=== PATIENT | male | born 1970 | race Caucasian/White ===

== ENCOUNTER → 2016-08-03 | Outpatient (CLI) | payer OTHER | LOC: MRI 07-26 09:00 → EMI 07-27 09:30 | DX: M54.5 Low back pain (principal); Z95.810 Presence of automatic (implantable) cardiac defibrillator; M51.36 Other intervertebral disc degeneration, lumbar region; M46.96 Unspecified inflammatory spondylopathy, lumbar region; M47.816 Spondylosis without myelopathy or radiculopathy, lumbar region; M47.817 Spondylosis without myelopathy or radiculopathy, lumbosacral region; M46.97 Unspecified inflammatory spondylopathy, lumbosacral region; M48.07 Spinal stenosis, lumbosacral region | CPT/HCPCS: 72148 ==

== ENCOUNTER → 2020-08-03 | Outpatient (CLI) | payer OTHER ==
[~2020-08-03] MED LIST: AUGMENTIN 875-1 EACH PO; CELEXA20 MG PO; CYCLOBENZAPRINE5 MG PO; FOLIC ACID1 MG PO; IBUPROFEN600 MG PO; MUCINEX600 MG PO; NAPROSYN500 MG PO; SULFAMETHOXAZO1 EACH PO; THIAMINE HCL100 MG PO; TORADOL 10 MG T10 MG PO; VICODIN HP 10-1 EACH PO; ZOFRAN4 MG PO
[2020-08-03 14:03] LABS: HEMOGLOBIN 15.3 gm/dl (14.0-17.5); RED BLOOD COUNT 4.98 M/UL (4.20-5.50); WHITE BLOOD COUNT 6.9 K/UL (4.5-11.0)
[2020-08-03 14:23] LABS: BUN/CREATININE RATIO 29 (0-10)
[2020-08-04 10:14] LABS: HBSAG SCREEN Negative (Negative); HEP A AB, IGM Negative (Negative); HEP B CORE AB, IGM Negative (Negative); HEP C VIRUS AB >11.0 (0.0-0.9)
== END ==
LOC: LAB 12:52
PROVIDERS: Nurse Practitioner Family
DX: Z00.00 Encounter for general adult medical examination without abnormal findings (principal); E78.5 Hyperlipidemia, unspecified; R53.83 Other fatigue; M25.50 Pain in unspecified joint; I10 Essential (primary) hypertension
CPT/HCPCS: 36415; 80053; 80061; 80074; 82150; 83690; 84443; 84550; 85027; 85652; 86038

== ENCOUNTER 2020-10-31 09:20 | Emergency (ER) | payer OTHER ==
[~2020-10-31 09:20] MED LIST changes: -CYCLOBENZAPRINE5 MG PO
[2020-10-31] MEDS ORDERED: NAPROSYN500 MG PO (14:43)
[2020-10-31] MEDS ORDERED: CYCLOBENZAPRINE5 MG PO (14:43)
== END 2020-10-31 15:06 | disposition home or self-care (01) ==
LOC: ER1 09:20
DX: G89.29 Other chronic pain (principal); M54.5 Low back pain; M51.36 Other intervertebral disc degeneration, lumbar region; F17.200 Nicotine dependence, unspecified, uncomplicated; Z79.899 Other long term (current) drug therapy
CPT/HCPCS: 96372; 99283; J1885

== ENCOUNTER 2021-01-18 12:41 | Emergency (ER) | payer OTHER ==
[~2021-01-18 12:41] MED LIST changes: +CYCLOBENZAPRINE5 MG PO
[2021-01-18 13:49] LABS: HEMOGLOBIN 16.8 gm/dl (14.0-17.5); RED BLOOD COUNT 5.26 M/UL (4.20-5.50); WHITE BLOOD COUNT 10.3 K/UL (4.5-11.0)
[2021-01-18 14:12] LABS: BUN/CREATININE RATIO 14 (0-10)
[2021-01-18] MEDS ORDERED: PHENERGAN 25 MG25 M1 PO (16:01)
[2021-01-18] MEDS ORDERED: BLUE-EMU LIDOC1 EACH TP (16:01)
[2021-01-18] MEDS ORDERED: ROBAXIN 750 MG750 MG GT (16:01)
== END 2021-01-18 16:14 | disposition home or self-care (01) ==
LOC: ER1 12:41
PROVIDERS: Physician Assistant
DX: U07.1 COVID-19 (principal); M54.5 Low back pain; G89.29 Other chronic pain; F17.200 Nicotine dependence, unspecified, uncomplicated
CPT/HCPCS: 71045; 72100; 80053; 85025; 96372; 99283; J1885; U0003

== ENCOUNTER 2021-02-11 07:35 | Emergency (ER) | payer OTHER ==
[~2021-02-11 07:35] MED LIST changes: +BLUE-EMU LIDOC1 EACH TP; +PHENERGAN 25 MG25 M1 PO; +ROBAXIN 750 MG750 MG GT
[2021-02-11] MEDS ORDERED: ENDOCET 5-3251 EACH PO (08:07)
[2021-02-11] MEDS ORDERED: IBU800 MG PO (08:07)
== END 2021-02-11 08:31 | disposition home or self-care (01) ==
LOC: ER1 07:35
DX: K04.02 Irreversible pulpitis (principal)
CPT/HCPCS: 64400; 96372; 99282; J1885

== ENCOUNTER 2021-07-03 02:44 | Emergency (ER) | payer OTHER ==
[~2021-07-03 02:44] MED LIST changes: +ENDOCET 5-3251 EACH PO; +IBU800 MG PO
[2021-07-03 03:33] LABS: HEMOGLOBIN 16.1 gm/dl (14.0-17.5); RED BLOOD COUNT 5.02 M/UL (4.20-5.50); WHITE BLOOD COUNT 8.2 K/UL (4.5-11.0)
[2021-07-03 03:52] LABS: BUN/CREATININE RATIO 13 (0-10)
== END 2021-07-03 04:15 | disposition left against medical advice (07) ==
LOC: ER1 02:44
PROVIDERS: Family Medicine
DX: R07.9 Chest pain, unspecified (principal); Z20.822 Contact with and (suspected) exposure to COVID-19; F17.200 Nicotine dependence, unspecified, uncomplicated
CPT/HCPCS: 71045; 80053; 83615; 85025; 86140; 99283; U0002

== ENCOUNTER → 2021-07-18 | Emergency (ER) | payer OTHER ==
[~2021-07-18] MED LIST changes: +DECADRON4 MG PO; +ZITHROMAX250 MG PO
== END | disposition home or self-care (01) ==
LOC: ER1 05:05
DX: R05.9 Cough, unspecified (principal)
CPT/HCPCS: 99283

== ENCOUNTER 2021-10-01 00:55 | Emergency (ER) | payer OTHER ==
[2021-10-01] MEDS ORDERED: HYDROCORTISONE30 G2 PR (01:34)
== END 2021-10-01 02:22 | disposition home or self-care (01) ==
LOC: ER1 00:55
DX: K64.4 Residual hemorrhoidal skin tags (principal); F17.200 Nicotine dependence, unspecified, uncomplicated
CPT/HCPCS: 99283